=== PATIENT | male | born 1980 | race Caucasian/White ===

== ENCOUNTER 2020-03-18 12:10 | Emergency (ER) | payer SELFPAY ==
[2020-03-18 12:37] VITALS: BP 140/82
--- NOTE | 2020-03-18 15:00 | ER Document Report ---
ED General - General Chief Complaint: Nausea/Vomiting Stated Complaint: VOMITING Time Seen by Provider: 03/18/20 14:31 Mode of Arrival: Ambulatory Information source: Patient Notes: Patient is a 39-year-old male coming in today primarily because he has been having a cough that he says is productive of "black sputum". He is unfortunately a lifelong heavy smoker. He is not complaining of any fevers or chills. He does not have any malaise or myalgias. Complains every once in a w hile that he throws up but does not have abdominal pain. TRAVEL OUTSIDE OF THE [place] IN LAST 30 DAYS: No - Related Data Allergies/Adverse Reactions: No Known Allergies Allergy (Unverified 08/02/15 13:56) Past Medical History - Social History Smoking Status: Current Every Day Smoker Frequency of alcohol use: None Drug Abuse: None Family History: None - Past Medical History Cardiac Medical History: Reports: Hx Hypertension Past Surgical History: Reports: Hx Orthopedic Surgery - back surgery - Immunizations Hx Diphtheria, Pertussis, Tetanus Vaccination: No Review of Systems - Review of Systems Notes: Constitutional: No fevers. No chills. EENT: No eye redness. No eye pain. No ear pain. No sore throat. Cardiovascular: No chest pain. No palpitations. Respiratory: Positive cough. Positive sputum production Gastrointestinal: No abdominal pain. Positive for rare episodes of emesis Genitourinary: Atraumatic. No lesions. No pain. No discharge. Musculoskeletal: Atraumatic. No swelling. No deformities. Skin: No rash or lesions. Lymphatic: No swollen lymph nodes. Neurologic: No headache. No syncope. Psychiatric: No suicidal or homicidal ideation. Physical Exam - Vital signs Vitals: Temp Pulse Resp BP Pulse Ox 98.3 F 82 16 140/82 H 100 03/18/20 12:36 03/18/20 12:36 03/18/20 12:36 03/18/20 12:36 03/18/20 12:36 - Notes Notes: General: Well-developed, well-nourished. In no acute distress. Non-toxic appearing. Cardiac: Well-perfused. Regular rate and rhythm. No murmurs, rubs, or gallops. Pulmonary: No respiratory distress. No cyanosis. Bilateral lung robbins are clear to auscultation. Abdominal: Non-distended. Non-rigid. Bowels sounds are present in all four quadrants. No guarding or rebound. HEENT: Head is atraumatic. Conjunctivae not reddened. No tearing. PERRL. EOMI. Orbits atraumatic. No periorbital swelling or erythema. Oropharynx is without erythema, swelling, or exudates. Neck: Supple. No adenopathy. No meningismus. Dermatologic: Warm with good turgor. No rash. Atraumatic. Chest: Atraumatic. No chest wall tenderness to palpation. Musculoskeletal: Moves all extremities well. No range of motion deficits. no muscular or joint tenderness. No paraspinal muscle tenderness. no midline spinal tenderness or step-off. Genitourinary: Examination deferred Neurologic: No gross neurologic deficits. Psychiatric: Normal mood. Course - Re-evaluation Re-evalutation: 03/18/20 14:59 Patient looks well. Based on his affect and our discussion, it sounds like he is concerned because he has the dark-colored sputum and is potentially worried about some type of lung pathology. 03/18/20 16:01 Patient actually has moderate amount of blood in his urine. With a history of the intermittent vomiting, will check a CT stone study. Hopefully if there is any other obvious pathology we will sweet pickle maker on it in the noncontrasted study. I have little concern that there will be any other pathology besides a possible stone or some nephrolithiasis. 03/18/20 16:40 Patient has normal labs with the exception of some blood in his urine. CT stone study is negative but he does have some nephrolithiasis but there is nothing obstructing. No ureterolithiasis or hydronephrosis. Patient's chest x-ray is negative. Most likely some type of upper respiratory phlegm production. We will start him on Zithromax for that. He can follow-up as an outpatient for the blood in his urine. Most likely really nothing to do about that. Nothing in the lab work to explain the occasional episodes of emesis. - Vital Signs Vital signs: Temp Pulse Resp BP Pulse Ox 98.3 F 82 16 140/82 H 100 03/18/20 12:36 03/18/20 12:36 03/18/20 12:36 03/18/20 12:36 03/18/20 12:36 - Laboratory Result Diagrams: 03/18/20 15:25 03/18/20 15:25 Laboratory results interpreted by me: 03/18/20 03/18/20 15:25 15:25 Sodium 136.0 L Glucose 112 H Urine Blood MODERATE H Leukocyte Esterase Rfl TRACE H Discharge - Discharge Clinical Impression: Productive cough, Nephrolithiasis, Elevated blood pressure reading, Tobacco abuse Condition: Good Disposition: HOME, SELF-CARE Instructions: Upper Respiratory Illness ([facility]) Additional Instructions: Antibiotics for 5 days for upper respiratory infection. You need to stop smoking cigarettes. We found some blood in your urine today. We did a CAT scan to make sure that she did not have any worrisome kidney stones. You do have some stones in your kidney but these are not affecting their function but they may be causing you to have blood in your urine. Please follow-up as an outpatient for this. If you do not have a primary care physician, you can follow-up with the [facility] and they can help you with most of your basic medical needs. You will find information about the [facility] in this packet of paperwork. Prescriptions: Azithromycin [Zithromax 250 mg Tablet] 250 mg PO ASDIR PRN #6 tablet PRN Reason: Forms: Elevated Blood Pressure, Smoking Cessation Education
[2020-03-18 15:33] LABS: ABSOLUTE BASOPHILS # (AUTO) 0.1 10^3/uL (0.0-0.2); ABSOLUTE EOSINOPHILS # (AUTO) 0.2 10^3/uL (0.0-0.6); ABSOLUTE LYMPHOCYTES (AUTO) 2.8 10^3/uL (0.5-4.7); ABSOLUTE NEUT (AUTO) 4.8 10^3/uL (1.7-8.2); BASOPHILS % (AUTO) 0.7 % (0-2); EOSINOPHILS % (AUTO) 2.2 % (0-6); HEMATOCRIT 41.1 % (37.9-51.0); HEMOGLOBIN 14.4 g/dL (13.5-17.0); LYMPHOCYTES % (AUTO) 31.2 % (13-45); MEAN CORPUSCULAR HEMOGLOBIN 31.2 pg (27.0-33.4); MEAN CORPUSCULAR HGB CONC 35.1 g/dL (32.0-36.0); MEAN CORPUSCULAR VOLUME 89 fl (80-97); MONOCYTES % (AUTO) 11.2 % (3-13); PLATELET COUNT 246 10^3/uL (150-450); RED BLOOD COUNT 4.63 10^6/uL (4.35-5.55); RED CELL DISTRIBUTION WIDTH 13.6 % (11.5-14.0); SEGMENTED NEUTROPHILS % (AUTO) 54.7 % (42-78); TOTAL CELLS COUNTED % (AUTO) 100 %; WHITE BLOOD COUNT 8.8 10^3/uL (4.0-10.5)
[2020-03-18 15:38] LABS: APPEARANCE,URINE CLEAR; BILIRUBIN,URINE NEGATIVE (NEGATIVE); COLOR,URINE STRAW; GLUCOSE, URINE NEGATIVE (NEGATIVE); KETONES,URINE NEGATIVE (NEGATIVE); PROTEIN,URINE NEGATIVE (NEGATIVE); URINE SPECIFIC GRAVITY 1.004; UROBILINOGEN,URINE NEGATIVE mg/dL (<2.0)
--- NOTE | 2020-03-18 15:50 | RADIOLOGY REPORT (SQ) ---
EXAM DESCRIPTION: CHEST SINGLE VIEW IMAGES COMPLETED DATE/TIME: 03/18/2020 3:39 pm REASON FOR STUDY: coughing up black COMPARISON: None. EXAM PARAMETERS: NUMBER OF VIEWS: One view. TECHNIQUE: Single frontal radiographic view of the chest acquired. RADIATION DOSE: NA LIMITATIONS: None. FINDINGS: LUNGS AND PLEURA: No opacities, masses or pneumothorax. No pleural effusion. MEDIASTINUM AND HILAR STRUCTURES: No masses. Contour normal. HEART AND VASCULAR STRUCTURES: Heart normal in size. Normal vasculature. BONES: No acute findings. HARDWARE: None in the chest. OTHER: No other significant finding. IMPRESSION: NO ACUTE RADIOGRAPHIC FINDING IN THE CHEST. TECHNICAL DOCUMENTATION: JOB ID: [id number] 2010 [id number]- All Rights Reserved Reading location - IP/workstation name: [email or web address]
[2020-03-18 15:52] LABS: ALBUMIN 4.3 g/dL (3.5-5.0); ALKALINE PHOSPHATASE 77 U/L (38-126); ANION GAP 8 (5-19); ASPARTATE AMINO TRANSFERASE 25 U/L (17-59); BILIRUBIN,DIRECT 0.2 mg/dL (0.0-0.4); BILIRUBIN,TOTAL 0.4 mg/dL (0.2-1.3); BLOOD UREA NITROGEN 14 mg/dL (7-20); CALCIUM 9.4 mg/dL (8.4-10.2); CARBON DIOXIDE 30 mmol/L (22-30); CHLORIDE 98 mmol/L (98-107); GLUCOSE 112 mg/dL (75-110); POTASSIUM 4.3 mmol/L (3.6-5.0); TOTAL PROTEIN 6.8 g/dL (6.3-8.2)
--- NOTE | 2020-03-18 16:38 | RADIOLOGY REPORT (SQ) ---
EXAM DESCRIPTION: CT ABD/PELVIS NO ORAL OR IV IMAGES COMPLETED DATE/TIME: 03/18/2020 4:16 pm REASON FOR STUDY: hematuria, n/v COMPARISON: None. TECHNIQUE: CT scan of the abdomen and pelvis performed without intravenous or oral contrast. Images reviewed with lung, soft tissue, and bone windows. Reconstructed coronal and sagittal MPR images revi ewed. All images stored on PACS. All CT scanners at this facility use dose modulation, iterative reconstruction, and/or weight based d osing when appropriate to reduce radiation dose to as low as reasonably achievable (ALARA). [facility]: Dose Right [facility]: CareDose [facility]: Dose Right [facility]: Teradose 4D [facility]: Smart [employer] RADIATION DOSE: CT Rad equipment meets quality standard of care and radiation dose reduction techniq ues were employed. CTDIvol: 6.1 mGy. DLP: 315 mGy-cm.mGy. LIMITATIONS: None. FINDINGS: LOWER CHEST: No significant findings. No nodules or infiltrates. NON-CONTRASTED LIVER, SPLEEN, ADRENALS: Evaluation limited by lack of IV contrast. No identified sign ificant masses. PANCREAS: No masses. No peripancreatic inflammatory changes. GALLBLADDER: No identified stones by CT criteria. No inflammatory changes to suggest cholecystitis. RIGHT KIDNEY AND URETER: No suspicious masses. Assessment limited by lack of IV contrast. Coarse no nobstructing nephrolith within the inferior pole collecting system. No hydronephrosis or hydrourete r. LEFT KIDNEY AND URETER: No suspicious masses. Assessment limited by lack of IV contrast. Coarse non obstructing nephrolith within the inferior pole collecting system. No hydronephrosis or hydroureter . AORTA AND RETROPERITONEUM: No aneurysm. No retroperitoneal masses or adenopathy. BOWEL AND PERITONEAL CAVITY: No obvious masses or inflammatory changes. No free fluid. APPENDIX: Normal. PELVIS, BLADDER, AND ABDOMINAL WALL:No abnormal masses. No free fluid. Bladder normal. BONES: No acute findings. Mild degenerative changes are seen of the hips and spine. OTHER: No other significant finding. IMPRESSION: Nonobstructive nephrolithiasis. No evidence of acute intra-abdominal infectious/inflamm atory process. COMMENT: Quality ID # [id number]: Final reports with documentation of one or more dose reduction techniques (e.g., Automated exposure control, adjustment of the mA and/or kV according to patient size, use of iterative reconstruction technique) TECHNICAL DOCUMENTATION: JOB ID: [id number] 2010 [employer]- All Rights Reserved Reading location - IP/workstation name: [email or web address]
== END 2020-03-18 17:05 | disposition home or self-care (01) ==
LOC: ER 12:10
DX: R05 Cough (principal); F17.200 Nicotine dependence, unspecified, uncomplicated; R11.2 Nausea with vomiting, unspecified; N20.0 Calculus of kidney; R31.9 Hematuria, unspecified; I10 Essential (primary) hypertension
CPT/HCPCS: 36415; 71045; 74176; 80053; 81001; 83690; 85025; 87086; 99285